=== PATIENT | female | born 1950 | race Caucasian/White ===

== ENCOUNTER 2022-12-29 14:58 | Outpatient (CLI) | payer MEDICARE, BC, SELFPAY ==
--- NOTE | 2022-12-29 15:20 | CRLHL7_ITS ---
For Patients: As a result of the Cures Act, medical imaging exams and procedure reports are released immediately into your electronic medical record. You may view this report before your referring provider. If you have questions, please contact your health care provider. BILATERAL SCREENING MAMMOGRAM WITH COMPUTER-AIDED DETECTION AND TOMOSYNTHESIS TECHNIQUE: CC and MLO views were obtained. These mammographic images have been obtained using full-field digital technique. These mammographic images were interpreted with the benefit of computer-aided detection. Breast Tomosynthesis was used in this interpretation. COMPARISON FILM: 08/07/19, 07/17/18, 05/30/17. FINDINGS: The breasts are heterogeneously dense, which may obscure small masses IMPRESSION: There is no radiographic evidence for malignancy. ASSESSMENT: BI-RADS Category 2: Benign RECOMMENDATION: Routine screening mammogram in 1 year. A lay language report of this examination will be provided to the patient. CARLYN HAMM M.D. Diagnostic/Nuclear Medicine Radiologist [email or web address] ESTHER:meg Transcribed: 1:13 p.mJavon weaver/Dictated by: Carlyn Hmam MD @ 12/30/2022 8:26:00 AM (Electronically Signed)
== END 2022-12-29 14:59 | disposition home or self-care (01) ==
LOC: MAMMO 15:00
DX: Z12.31 Encounter for screening mammogram for malignant neoplasm of breast (principal); R92.2 Inconclusive mammogram
CPT/HCPCS: 77063; 77067

== ENCOUNTER 2023-07-19 07:58 | Emergency (ER) | payer MEDICARE, BC, SELFPAY ==
[2023-07-19 08:18] VITALS: BP 165/97; PULSE 94; RESP 16; TEMP 36.3; O2SAT 99; BMI 21.3
--- NOTE | 2023-07-19 08:24 | CRLHL7_ITS ---
For Patients: As a result of the Century Cures Act, medical imaging exams and procedure reports are released immediately into your electronic medical record. You may view this report before your referring provider. If you have questions, please contact your health care provider. INDICATION: Cough COMPARISON: None. TECHNIQUE: PA and lateral 2 view chest radiograph. FINDINGS: The lungs are well expanded. No focal consolidations. No pulmonary edema. No pleural effusion. No pneumothorax. No pneumomediastinum. Normal cardiomediastinal silhouette. Few atherosclerotic plaques of the aortic arch. Electronic recording device over the left anterior chest. Bones: Normal for age. IMPRESSION: Lungs are clear. Normal chest radiographs. Dictated by Nga Gutierrez MD @ 07/19/2023 8:59:52 AM (Electronically Signed)
--- NOTE | 2023-07-19 08:43 | ED.NURSE ---
Lab in room.
--- NOTE | 2023-07-19 08:46 | ED.NURSE ---
Pt to xray.
--- NOTE | 2023-07-19 08:49 | ED.GENADULT ---
HPI - General Adult General Chief complaint: Cough Stated complaint: bad chest cold Time Seen by Provider: 07/19/23 08:23 Source: patient Mode of arrival: ambulatory Limitations: no limitations History of Present Illness HPI narrative: 73-year-old female coming in today complaining of a cough and congestion going on for about 1 week. She feels like her symptoms are getting worse instead of better. She denies any fevers or chills. Cough is productive of green sputum. She is tired. Appetite has been okay. No nausea or vomiting. She was in [place] at the end of June, travel partner had similar symptoms at that time. Related Data Home Medications Medication Instructions Recorded Confirmed No Known Home Medications 07/19/23 07/19/23 Allergies Allergy/AdvReac Type Severity Reaction Status Date / Time minocycline Allergy Mild Verified 07/19/23 08:21 Review of Systems Status of ROS: Reports: 10 or more systems reviewed and unremarkable except as noted in History and below PFSH PFS Social History Smoking Status: Never smoker How often do you have a drink containing alcohol: 4 or more times a week How many standard drinks containing alcohol do you have on a typical day: 1 or 2 AUDIT-C Alcohol total score: 4 Non-prescribed substance use: denies use service: No Exam Narrative: Exam Narrative: Well-nourished well-developed patient in no acute distress. Alert and oriented. Answers questions appropriately. Mood and affect are appropriate. Thoughts are goal oriented and rational. No tangential or magical thinking noted. Patient speaks in full sentences without needing to catch their breath. Sounds very congested. HEENT: Normocephalic atraumatic. Pupils are equally round reactive to light. Extraocular muscles are intact. Conjunctivae are moist without any icterus noted. Moist mucous membranes. Posterior pharynx is normal. Neck is soft without any lymphadenopathy or thyromegaly. No masses are appreciated. Cardiovascular: Heart is regular rate and rhythm S1 and S2 are present without any murmurs. Lungs: Clear to auscultation bilaterally no wheezes rhonchi or rales are appreciated. Patient takes deep breaths without any discomfort. Abdomen: Soft and nontender nondistended with normal bowel sounds. Extremities: Bilateral lower extremities are without edema. Skin: Well perfused without any obvious rashes. Const: Vital Signs, click to edit/add: Vital Signs - 24 hr 07/19/23 08:18 07/19/23 08:56 Temperature 97.3 F L Pulse Rate [Left P ulse Oximeter] 94 75 Respiratory Rate 16 16 Blood Pressure [Le ft Upper Arm] 165/97 H Pulse Oximetry 99 96 Oxygen Delivery Me thod Room Air Room Air Course Course ED Course: Chest x-ray, read by me, does not show any acute pathology. CBC is unremarkable. Triple swab is negative. Patient remains hemodynamically stable without any hypoxia while she is in the ED. Vital Signs Vital signs: Initial Vital Signs Temperature 97.3 F L 07/19/23 08:18 Temperature Source Temporal Artery Scan 07/19/23 08:18 Pulse Rate 94 07/19/23 08:18 Pulse Rhythm Regular 07/19/23 08:18 Respiratory Rate 16 07/19/23 08:18 Blood Pressure 165/97 H 07/19/23 08:18 Blood Pressure Mean 119 H 07/19/23 08:18 Blood Pressure Position Sitting 07/19/23 08:18 Pulse Oximetry 99 07/19/23 08:18 Oxygen Delivery Method Room Air 07/19/23 08:18 Vital Signs Temperature 97.3 F L 07/19/23 08:18 Pulse Rate 94 07/19/23 08:18 Respiratory Rate 16 07/19/23 08:18 Blood Pressure 165/97 H 07/19/23 08:18 Pulse Oximetry 99 07/19/23 08:18 Oxygen Delivery Method Room Air 07/19/23 08:18 Temperature 97.3 F L 07/19/23 08:18 Pulse Rate 75 07/19/23 08:56 Respiratory Rate 16 07/19/23 08:56 Blood Pressure 165/97 H 07/19/23 08:18 Pulse Oximetry 96 07/19/23 08:56 Oxygen Delivery Method Room Air 07/19/23 08:56 Medical Decision Making MDM Narrative Medical decision making narrative: 73-year-old female with upper respiratory infection and cough, likely viral in nature. We discussed symptomatic treatment reasons for follow-up. Lab Data Lab results reviewed: Yes I reviewed the patient's lab results Labs: Lab Results 07/19/23 07/19/23 Range/Units 08:16 08:44 WBC 6.89 (4.50-11.00) K/uL RBC 4.56 (4.00-5.20) m/uL Hgb 13.3 (12.0-16.0) gm/dL Hct 39.7 (33.0-51.0) % MCV 87 (80-100) fL MCH 29 (26-34) pg MCHC 34 (32-36) gm/dL RDW Coeff of Johnnie 11.7 (11.5-15.5) % Plt Count 313 (140-440) K/uL Neut % (Auto) 67.7 (42.0-72.0) % Lymph % (Auto) 20.2 (20-44) % [place] % (Auto) 8.9 (0.0-11.0) % Eos % (Auto) 2.8 (0.0-7.0) % Baso % (Auto) 0.4 (0.0-3.0) % Neut # (Auto) 4.67 (1.7-7.0) K/uL Lymph # (Auto) 1.39 (0.90-2.90) K/uL [place] # (Auto) 0.60 (0.00-0.90) K/UL Eos # (Auto) 0.19 (0.00-0.50) K/uL Baso # (Auto) 0.03 (0.00-0.30) K/uL Abs Immat Gran (auto) 0.00 (0.00-0.30) K/uL Imm/Tot Granulo (auto) 0.0 % SARS-CoV-2 (PCR) Negative SARS-CoV-2 (Negative) Influenza Type A (PCR) Negative PCR FLU A (Negative) Influenza Type B (PCR) Negative PCR FLU B (Negative) RSV (PCR) Negative PCR RSV (Negative) Imaging Data Chest x-ray: Attestation: I have reviewed the pertinent imaging results. Radiologist's impression: PA and lateral 2 view chest radiograph. FINDINGS: The lungs are well expanded. No focal consolidations. No pulmonary edema. No pleural effusion. No pneumothorax. No pneumomediastinum. Normal cardiomediastinal silhouette. Few atherosclerotic plaques of the aortic arch. Electronic recording device over the left anterior chest. Bones: Normal for age. IMPRESSION: Lungs are clear. Normal chest radiographs. Discharge Plan Discharge Clinical Impression: Acute upper respiratory infection Patient Disposition: Home, Self-Care Condition: Stable Additional Instructions: Your blood work, which included a complete blood count, was normal today. Chest x-ray did not show any evidence of pneumonia. Testing for COVID, influenza and RSV were all negative. Okay to use [id number] cough suppressants such as cough drops. Make sure to increase your daily hydration and rest as needed. Prescriptions: No Action No Known Home Medications Follow Up/Referrals: Provider,Not a Local [Primary Care Provider] - Stand Alone Forms: [employer] Info Instructions
[2023-07-19 08:56] VITALS: PULSE 75; RESP 16; O2SAT 96
[2023-07-19 09:00] LABS: PCR FLU A Negative PCR FLU A (Negative); PCR FLU B Negative PCR FLU B (Negative); PCR RSV Negative PCR RSV (Negative)
[2023-07-19 09:10] LABS: Basophils Absolute Auto 0.03 K/uL (0.00-0.30); Basophils Percent Auto 0.4 % (0.0-3.0); Eosinophils Absolute Auto 0.19 K/uL (0.00-0.50); Eosinophils Percent Auto 2.8 % (0.0-7.0); Hematocrit 39.7 % (33.0-51.0); Hemoglobin* 13.3 gm/dL (12.0-16.0); Lymphocytes Absolute Auto 1.39 K/uL (0.90-2.90); Lymphocytes Percent Auto 20.2 % (20-44); Mean Corpuscular HGB Conc 34 gm/dL (32-36); Mean Corpuscular Hemoglobin 29 pg (26-34); Mean Corpuscular Volume 87 fL (80-100); Monocytes Percent Auto 8.9 % (0.0-11.0); Neutrophils Absolute Auto 4.67 K/uL (1.7-7.0); Neutrophils Percent Auto 67.7 % (42.0-72.0); Platelet Count* 313 K/uL (140-440); RDW Coefficient of Variation % 11.7 % (11.5-15.5); Red Blood Count 4.56 m/uL (4.00-5.20); White Blood Count* 6.89 K/uL (4.50-11.00)
[2023-07-19 09:13] LABS: Slide Review Reflex No
[2023-07-19 09:19] LABS: SARS PCR* Negative SARS-CoV-2 (Negative)
[2023-07-19 09:39] VITALS: BP 141/81; PULSE 78; RESP 16
== END 2023-07-19 09:36 | disposition home or self-care (01) ==
PROVIDERS: Emergency Provider Family Medicine
DX: J06.9 Acute upper respiratory infection, unspecified (principal)
CPT/HCPCS: 36415; 71046; 85025; 87631; 99284

== ENCOUNTER 2024-02-06 13:08 | Outpatient (CLI) | payer MEDICARE, BC, SELFPAY ==
--- NOTE | 2024-02-06 13:40 | CRLHL7_ITS ---
For Patients: As a result of the Century Cures Act, medical imaging exams and procedure reports are released immediately into your electronic medical record. You may view this report before your referring provider. If you have questions, please contact your health care provider. BILATERAL SCREENING MAMMOGRAM WITH COMPUTER-AIDED DETECTION AND TOMOSYNTHESIS TECHNIQUE: CC and MLO views were obtained. These mammographic images have been obtained using full-field digital technique. These mammographic images were interpreted with the benefit of computer-aided detection. Breast Tomosynthesis was used in this interpretation. COMPARISON FILM: 12/29/22, 08/07/19, 07/17/18. FINDINGS: The breasts are heterogeneously dense, which may obscure small masses. IMPRESSION: There is no radiographic evidence for malignancy. ASSESSMENT: BI-RADS Category 1: Negative RECOMMENDATION: Routine screening mammogram in 1 year. A lay language report of this examination will be provided to the patient. Gavino Ashford M.D. Diagnostic Radiologist [email or web address] SP/Dictated by: Gavino Ashford MD @ 02/07/2024 9:13:00 AM (Electronically Signed)
== END 2024-02-06 13:09 | disposition home or self-care (01) ==
LOC: MAMMO 13:09
PROVIDERS: Visit Provider Family Medicine
DX: Z12.31 Encounter for screening mammogram for malignant neoplasm of breast (principal); R92.2 Inconclusive mammogram
CPT/HCPCS: 77063; 77067

== ENCOUNTER 2024-05-23 14:06 | Outpatient (CLI) | payer MEDICARE, BC, SELFPAY ==
--- NOTE | 2024-05-23 14:30 | CRLHL7_ITS ---
For Patients: As a result of the Century Cures Act, medical imaging exams and procedure reports are released immediately into your electronic medical record. You may view this report before your referring provider. If you have questions, please contact your health care provider. Indication: Follow up pituitary macro adenoma. Technique: Performed before and after IV gadolinium, including high-resolution image acquisition through the pituitary gland. Contrast: 15 cc Dotarem. Comparison: CT head dated 06/28/2021. Findings: Empty sella morphology, with changes from previous trans-sphenoidal tumor resection. A thin band of adenohypophysis tissue persists along the floor of the enlarged sella. No mass is identified. These findings are unchanged from 06/28/2021. The posterior lobe is not discretely identified. The infundibulum is intact. The remainder of the parasellar structures are unremarkable. There is a well-circumscribed ovoid enhancing 14 mm extra-axial mass along the lateral aspect of the right posterior temporal convexity, typical for a meningioma. This is unchanged from 06/28/2021. Small foci of T2 signal abnormality are noted in the cerebral white matter, typical for small vessel ischemic change. No acute infarct or restricted diffusion. No mass effect. No ventricular obstruction. No additional abnormal IV gadolinium enhancement identified. Grossly normal flow void are seen in the intracranial vascular structures, including the cavernous and supraclinoid ICA`s. Slight membrane thickening in the ethmoid sinuses. Impression: 1. Postoperative empty sella morphology. No recurrent mass is identified. 2. Mild presumed chronic microvascular ischemic changes in the cerebral white matter. 3. No acute pathology. Dictated by Julio Higgins MD @ 05/25/2024 8:22:26 AM (Electronically Signed)
== END 2024-05-23 14:07 | disposition home or self-care (01) ==
LOC: MRI 14:07
PROVIDERS: PCP Family Medicine; Visit Provider Neurological Surgery
DX: D35.2 Benign neoplasm of pituitary gland (principal); I67.82 Cerebral ischemia
CPT/HCPCS: 70553; A9575

== ENCOUNTER 2024-07-13 08:15 | Outpatient (RCR) | payer MEDICARE, BC, SELFPAY | END 2024-09-18 14:52 | disposition home or self-care (01) | PROVIDERS: PCP Family Medicine; Visit Provider Family Medicine | DX: H81.11 Benign paroxysmal vertigo, right ear (principal); Z51.89 Encounter for other specified aftercare | CPT/HCPCS: 95992; 97162; 97535 ==

== ENCOUNTER 2024-12-12 12:46 | Outpatient (CLI) | payer MEDICARE, BC, SELFPAY ==
--- NOTE | 2024-12-12 13:00 | CRLHL7_ITS ---
For Patients: As a result of the Century Cures Act, medical imaging exams and procedure reports are released immediately into your electronic medical record. You may view this report before your referring provider. If you have questions, please contact your health care provider. XR DXA Bone Mineral Density (BMD) Reason for exam: Osteopenia and other specified disorders of bone density. Current height (in): 66. Weight (lb): 132. Menopause age: 55. Ethnicity: White. 1. Have you had a previous hip or vertebral fracture? No. 2. Have you had any fractures during your adult life which did not result from significant trauma (e.g., auto accident)? No. 3. Did either of your parents have a hip fracture? No. 4. Do you smoke? No. 5. Have you ever taken Glucocorticoids? No. 6. Do you have rheumatoid arthritis? No. 7. Do you have secondary osteoporosis? No. 8. Do you drink 3 or more alcoholic drinks per day? No. 9. Are you being treated for osteoporosis? No. 10. Have you ever taken any of the following medications: Actonel, Evista, Fosamax, Miacalcin, Reclast, Boniva, Forteo, HRT (i.e. estrogen/hormone therapy), Protelos, Prolia, Vitamin D, Calcium, other ??? please specify. ANSWER: Yes, vitamin D and calcium. 11. Do you have any of the following medical conditions: Anorexia or bulimia, asthma or emphysema, end stage renal disease, hyperparathyroidism, any seizure disorders, cancer, inflammatory bowel diseases, hysterectomy, other ??? please specify. ANSWER: No. 12. What was your maximum height (inches)? 66. 13. Do you perform weight bearing exercise regularly? Yes. 14. Do you regularly consume dairy products? Yes. 15. Do you drink caffeinated beverages? Yes. 16. At what age did your period start? 12. 17. Are you premenopausal? No. 18. How many full term pregnancies have you had? 4. 19. Have you ever missed your period for more than 6 months in a row (not including or menopause)? No. TECHNIQUE: Bone mineral density study was performed using the [facility]. FINDINGS: The results of the study expressed as bone mineral density (BMD) are as follows: Lumbar spine L1 to L4: BMD: 0.901 g/cm2. T-score: -1.3. Z-score: 1.0. Neck Left: BMD: 0.601 g/cm2. T-score: -2.2. Z-score: -0.2. Right: BMD: 0.577 g/cm2. T-score: -2.5. Z-score: -0.4. Total Left: BMD: 0.722 g/cm2. T-score: -1.8. Z-score: -0.1. Right: BMD: 0.736 g/cm2. T-score: -1.7. Z-score: 0.1. IMPRESSION: Osteoporosis. Gavino Ashford M.D. Diagnostic Radiologist [email or web address] AMELIA/geetha / bM/Dictated by: Gavino Ashford MD @ 12/12/2024 3:24:00 PM (Electronically Signed)
== END 2024-12-12 12:47 | disposition home or self-care (01) ==
LOC: RAD 12:46
PROVIDERS: PCP Family Medicine; Visit Provider Family Medicine
DX: M85.89 Other specified disorders of bone density and structure, multiple sites (principal)
CPT/HCPCS: 77080

== ENCOUNTER 2025-03-07 13:45 | Outpatient (CLI) | payer MEDICARE, BC, SELFPAY ==
--- NOTE | 2025-03-07 14:00 | CRLHL7_ITS ---
For Patients: As a result of the Century Cures Act, medical imaging exams and procedure reports are released immediately into your electronic medical record. You may view this report before your referring provider. If you have questions, please contact your health care provider. INDICATION: bilateral screening mammogram, asymptomatic 74 year old female COMPARISON: 02/06/2024, 12/29/2022, 08/07/2019 TECHNIQUE: Digital mammogram in CC and MLO projections including computer-aided detection (CAD) and tomosynthesis. BREAST COMPOSITION: The breasts are heterogeneously dense, which may obscure small masses. FINDINGS: No suspicious findings. ASSESSMENT: BI-RADS 1 Negative RECOMMENDATION: Annual screening mammogram. A lay language report of this examination will be provided to the patient. Dictated by: Gavino Ashford MD @ 03/11/2025 09:55:10 (Electronically Signed)
== END 2025-03-07 13:46 | disposition home or self-care (01) ==
LOC: MAMMO 13:46
PROVIDERS: PCP Family Medicine; Visit Provider Family Medicine
DX: Z12.31 Encounter for screening mammogram for malignant neoplasm of breast (principal); R92.333 Mammographic heterogeneous density, bilateral breasts
CPT/HCPCS: 77063; 77067

== ENCOUNTER 2025-05-27 15:00 | Outpatient (RCR) | payer MEDICARE, BC, SELFPAY | END 2025-07-24 13:02 | disposition home or self-care (01) | PROVIDERS: PCP Family Medicine; Visit Provider Family Medicine | DX: H81.12 Benign paroxysmal vertigo, left ear (principal); Z51.89 Encounter for other specified aftercare | CPT/HCPCS: 95992; 97161; 97535 ==